=== PATIENT | female | born 1965 | race Two or more races ===

== ENCOUNTER 2018-02-24 10:17 | Emergency (ER) | payer MEDICAID ==
[~2018-02-24] VITALS: Ht 149.9 cm; Wt 70.3 kg
[2018-02-24] MEDS ORDERED: Ketorolac 60mg Inj IM ONE (10:30)
[2018-02-24 10:46] VITALS: BP 151/112
--- NOTE | 2018-02-24 11:09 | Diagnostic Imaging Report ---
Indication: Trauma Technique: Continuous helical CT scanning of the head was performed utilizing automated exposure control without intravenous contrast material. Axial and coronal reconstructions were obtained. Comparison: None CT dose: Total DLP 1284.38 mGycm; CTDI vol 70.38 mGy Findings: There is no acute intracranial hemorrhage, mass effect or cortical edema. The ventricles, cisterns and sulci are normal for age. Visualized mastoid air cells and paranasal sinuses are unremarkable. No focal lesions of the bony calvarium or soft tissues of the scalp are seen. Impression: No evidence of acute intracranial hemorrhage, mass effect or cortical edema. No skull fracture. The CT scanner at [facility] is accredited by the [employer] and the scans are performed using protocols designed to limit radiation exposure to as low as reasonably achievable to attain images of sufficient resolution adequate for diagnostic evaluation.
--- NOTE | 2018-02-24 11:15 | Diagnostic Imaging Report ---
Indication: Pain status post injury Technique: XRAY [facility] [employer] Comparison: None Findings: There are 5 nonrib-bearing lumbar vertebral bodies, assuming 12 paired ribs. There is grade 1 anterolisthesis of L4 on L5. There is degenerative change most pronounced in the lower lumbar spine with significant facet disease at L4-5 and L5-S1. Question pars defects at the levels. Vertebral body heights are preserved; no compression fracture. A calcified mass is noted in the left pelvis, likely calcified fibroid. IMPRESSION: No definite evidence of acute fracture. Degenerative change of the lumbar spine with grade 1 anterolisthesis of L4 on L5 with questionable pars defect, likely chronic. Calcified mass in the pelvis, likely calcified fibroid.
--- NOTE | 2018-02-24 11:35 | Emergency Room Report ---
History of Present Illness General Chief Complaint: Multiple Trauma/Fall Source: Patient Present Illness HPI The patient states that she was at work and she slipped and fell backwards on water that was on the floor. She states that she has pain in her head and the back of her head. She also has low back pain. She denies neck pain. She denies chest pain or shortness of breath. She denies abdominal pain. She denies weakness. She denies tingling or numbness. She has no other complaints. Allergies: Coded Allergies: No Known Allergies (Unverified , 02/24/18) Patient History Past Medical History: see triage record, HTN, other - Hypothyroid Social History: Denies: smoking, alcohol use, drug use Reviewed Nursing Documentation: PMH: Agreed; PSxH: Agreed Nursing Documentation-PMH Hx Hypertension: Yes Review of Systems All Other Systems: negative except mentioned in HPI Physical Exam Vital Signs Date Time Temp Pulse Resp B/P (MAP) Pulse Ox O2 Delivery O2 Flow Rate FiO2 02/24/18 09:57 97.7 80 18 151/112 97 Room Air 97.7 Sp02 EP Interpretation: reviewed, normal General Appearance: no apparent distress, alert, GCS 15, non-toxic Head: normocephalic, atraumatic Eyes: bilateral eye normal inspection, bilateral eye PERRL ENT: hearing grossly normal, normal pharynx, no angioedema, normal voice Neck: full range of motion, no bony tend, supple/symm/no masses Respiratory: chest non-tender, lungs clear, normal breath sounds, no respiratory distress, no retraction, no accessory muscle use, speaking full sentences Cardiovascular #1: regular rate, rhythm, no edema Gastrointestinal: normal bowel sounds, non tender, soft, non-distended, no guarding, no rebound Rectal: deferred Musculoskeletal: back normal, gait/station normal, normal range of motion, non- tender Neurologic: alert, oriented x3, responsive, motor strength/tone normal, sensory intact, speech normal Psychiatric: judgement/insight normal, memory normal, mood/affect normal, no suicidal/homicidal ideation Skin: normal color, no rash, warm/dry, well hydrated Medical Decision Making Diagnostic Impression: Primary Impression: Fall Additional Impressions: Closed head injury Low back strain ER Course This patient has a clinical presentation consistent with low back strain. X- ray of the lumbar spine are negative for fracture. There was a finding of grade 1 spondylolisthesis of L4 on L5. There is also degenerative changes. The patient has pain with range of motion and has tenderness to palpation along the muscle. There is no evidence of compartment syndrome. There is no neurologic deficit. Patient also had struck the back of her head. She complained of headache, so I did obtain a CT of the head. This was unremarkable. The patient's exam was otherwise benign and although the patient presented in a C-spine collar, I cleared that on arrival as the patient did not have midline tenderness. The patient also has a low mechanism. The patient was instructed on supportive home measures. No emergency medical condition was identified. The patient was given return precautions and followup instructions. Other X-Ray Diagnostic Results Other X-Ray Diagnostic Results : X-Ray ordered: L. spine # of Views/Limited Vs Complete: Complete Indication: Pain EP Interpretation: No Interpretation: other - Grade 1 spondylolisthesis of L4 on L5. Degenerative changes. See official report. Impression: No acute disease CT/MRI/US Diagnostic Results CT/MRI/US Diagnostic Results : Imaging Test Ordered: CT head Impression No acute findings. See official report. Last Vital Signs Date Time Temp Pulse Resp B/P (MAP) Pulse Ox O2 Delivery O2 Flow Rate FiO2 02/24/18 10:46 98.0 18 151/112 97 Room Air 98.0 02/24/18 09:57 80 Status: improved Disposition: HOME, SELF-CARE Condition: Improved Referrals: [facility],REFERR[facility] (PCP) Felecia Park DO Feb 24, 2018 11:35
[2018-02-24] MEDS ORDERED: CYCLOBENZAPRINE10 MG ORAL (12:21)
[2018-02-24] MEDS ORDERED: IBUPROFEN800 MG ORAL (12:21)
[2018-02-24 12:32] VITALS: BP 128/88
== END 2018-02-24 12:36 | disposition home or self-care (01) ==
LOC: EDBD 10:17 → EMR 11:09
DX: S09.8XXA Other specified injuries of head, initial encounter (principal); W01.0XXA Fall on same level from slipping, tripping and stumbling without subsequent striking against object, initial encounter; Y93.89 Activity, other specified; S39.012A Strain of muscle, fascia and tendon of lower back, initial encounter; M43.16 Spondylolisthesis, lumbar region; I10 Essential (primary) hypertension; E03.9 Hypothyroidism, unspecified
CPT/HCPCS: 70450; 72020; 96372; 99284